=== PATIENT | female | born 1935 ===

== ENCOUNTER → 2016-12-29 | Outpatient (CLI) | payer OTHER ==
[2016-12-29 18:08] LABS: URINE APPEARANCE CLEAR (CLEAR); URINE BILIRUBIN NEG (NEG); URINE COLOR DK YELLOW; URINE NITRITE NEG (NEG); URINE PH 5.5 (4.5-7.5); URINE SPECIFIC GRAVITY 1.026 (1.000-1.030); UROBILINOGEN NEG (NEG)
[2016-12-29 18:13] LABS: BLOOD UREA NITROGEN 21 mg/dl (7-18); BUN/CREATININE RATIO 20.6 (10-20); CARBON DIOXIDE 31 mmol/L (21-32); CHLORIDE 103 mmol/L (98-107); GLUCOSE 103 mg/dl (70-99); POTASSIUM 3.8 mmol/L (3.5-5.1); SODIUM 140 mmol/L (136-145)
[2016-12-29 18:14] LABS: BASO % 0.3 %; BASO ABS # 0.03 K/uL (0-0.2); COMPLETE YES; EOS % 1.1 %; HEMATOCRIT 43.2 % (37-47); IG% 0.4 %; LYMPH % 39.7 %; LYMPH ABS # 3.94 K/uL (1.2-3.4); MEAN CELL VOLUME 96.4 fL (80-100); MEAN CORPUSCULAR HEMOGLOBIN 31.5 pg (25-34); MEAN CORPUSCULAR HGB CONC 32.6 g/dl (32-36); MEAN PLATELET VOLUME 11.7 fL (7.4-10.4); MONO % 5.1 %; NEUT % 53.4 %; PHOSPHORUS 3.2 mg/dl (2.5-4.9); PLATELET COUNT 295 K/uL (130-400); RED BLOOD COUNT 4.48 M/uL (4.2-5.4); WHITE BLOOD COUNT 9.93 K/uL (4.8-10.8)
[2016-12-29 18:19] LABS: MANUAL MICROSCOPIC REQUIRED? NO; REVIEW REQ? NO; URINE PROTIEN/CREAT RATIO 0.1 (0-0.2); URINE TOTAL PROTEIN 25.1 mg/dl (0-11.9)
== END | disposition home or self-care (01) ==
LOC: C.LABMFLN 08:29
PROVIDERS: ATTEND Internal Medicine Nephrology
DX: N18.3 Chronic kidney disease, stage 3 (moderate) (principal)